=== PATIENT | male | born 1980 | race African-American/Black ===

== ENCOUNTER 2017-08-01 16:47 | Emergency (ER) | payer OTHER ==
[~2017-08-01] VITALS: Ht 172.7 cm; Wt 121.0 kg
[2017-08-01] MEDS ORDERED: ACETAMINOPHEN 500MG TABLET PO ONE (22:45)
[2017-08-01] MEDS ORDERED: IBUPROFEN 400MG TABLET PO ONE (22:45)
[2017-08-01 23:20] VITALS: BP 137/85
== END 2017-08-02 02:00 | disposition home or self-care (01) ==
LOC: ER 16:47
DX: S86.811A Strain of other muscle(s) and tendon(s) at lower leg level, right leg, initial encounter (principal); F17.200 Nicotine dependence, unspecified, uncomplicated; X58.XXXA Exposure to other specified factors, initial encounter; Y93.89 Activity, other specified; Y92.89 Other specified places as the place of occurrence of the external cause; Y99.8 Other external cause status
CPT/HCPCS: 93970; 99284

== ENCOUNTER 2017-11-18 14:19 | Emergency (ER) | payer OTHER ==
[~2017-11-18] VITALS: Ht 185.4 cm; Wt 120.0 kg
[2017-11-18] MEDS ORDERED: ALBUTEROL (0.083%) 2.5MG/3ML NEB HHN STA (14:51)
[2017-11-18 15:31] LABS: BASOPHILS % 0.5 % (0.0-2.0); EOSINOPHILS % 0.8 % (0.0-5.0); HEMATOCRIT. 44.4 % (42.0-52.0); HEMOGLOBIN. 14.9 g/dL (14.0-18.0); LYMPHOCYTES % 19.7 % (20.0-50.0); MEAN CORPUSCULAR HEMOGLOBIN 28.6 pg (28.0-32.0); MEAN CORPUSCULAR VOLUME 85.4 fL (80.0-94.0); MEAN PLATELET VOLUME 7.9 fl (7.4-10.4); MONOCYTES % 6.8 % (2.0-8.0); NEUTROPHILS % 72.2 % (40.0-76.0); PLATELET 190 x1000/uL (130-400); RED CELL DISTRIBUTION WIDTH 15.4 % (11.6-14.6)
[2017-11-18 15:34] LABS: CHLORIDE 97 mEq/L (98-107)
[2017-11-18 17:45] VITALS: BP 156/79
== END 2017-11-18 17:50 | disposition home or self-care (01) ==
LOC: ER 14:19
DX: R05 Cough (principal); R07.89 Other chest pain; R50.9 Fever, unspecified; Z98.890 Other specified postprocedural states
CPT/HCPCS: 36415; 71045; 80053; 83880; 84484; 85025; 93005; 94640; 99285; J7611

== ENCOUNTER 2018-03-07 08:51 | Emergency (ER) | payer OTHER ==
[~2018-03-07] VITALS: Ht 182.9 cm; Wt 113.0 kg
[2018-03-07 12:20] LABS: BASOPHILS % 0.8 % (0.0-2.0); EOSINOPHILS % 3.9 % (0.0-5.0); HEMATOCRIT. 46.3 % (42.0-52.0); HEMOGLOBIN. 15.4 g/dL (14.0-18.0); LYMPHOCYTES % 29.7 % (20.0-50.0); MEAN CORPUSCULAR HEMOGLOBIN 28.6 pg (28.0-32.0); MEAN CORPUSCULAR VOLUME 85.8 fL (80.0-94.0); MEAN PLATELET VOLUME 7.7 fl (7.4-10.4); NEUTROPHILS % 59.6 % (40.0-76.0); PLATELET 214 x1000/uL (130-400); RED CELL DISTRIBUTION WIDTH 14.7 % (11.6-14.6)
[2018-03-07 12:24] LABS: CHLORIDE 104 mEq/L (98-107)
[2018-03-07 12:26] LABS: D-DIMER 0.61 mg/L FEU (<0.50); PROTHROMBIN TIME 10.1 sec (9.1-11.1)
[2018-03-07 13:27] VITALS: BP 139/91
== END 2018-03-07 15:37 | disposition home or self-care (01) ==
LOC: ER 08:51
DX: S86.811A Strain of other muscle(s) and tendon(s) at lower leg level, right leg, initial encounter (principal); F17.200 Nicotine dependence, unspecified, uncomplicated; I10 Essential (primary) hypertension; J45.909 Unspecified asthma, uncomplicated; X58.XXXA Exposure to other specified factors, initial encounter; Y93.89 Activity, other specified; Y92.89 Other specified places as the place of occurrence of the external cause; Y99.8 Other external cause status; Z98.890 Other specified postprocedural states
CPT/HCPCS: 36415; 85379; 93971; 99284

== ENCOUNTER 2018-07-04 07:33 | Emergency (ER) | payer MEDICAID, OTHER ==
[~2018-07-04] VITALS: Ht 185.4 cm; Wt 116.0 kg
[2018-07-04] MEDS: HYDROCODONE/ACETAMINOPHEN 5/325MG TABLET PO STA (09:00)
[2018-07-04 10:55] VITALS: BP 138/78
[2018-07-04] MEDS: AMOXICILLIN/POTASSIUM CLAVULANATE 875/125MG TAB PO ONE (12:08)
[2018-07-04] MEDS: BACITRACIN ZINC OINT UDPKT TOP ONE (12:09)
== END 2018-07-04 12:30 | disposition home or self-care (01) ==
LOC: ER 07:33
DX: S02.2XXA Fracture of nasal bones, initial encounter for closed fracture (principal); S00.83XA Contusion of other part of head, initial encounter; M25.511 Pain in right shoulder; J45.909 Unspecified asthma, uncomplicated; I10 Essential (primary) hypertension; Y08.89XA Assault by other specified means, initial encounter; Y93.9 Activity, unspecified; Y92.89 Other specified places as the place of occurrence of the external cause; Y99.8 Other external cause status
CPT/HCPCS: 70486; 73030; 99284

== ENCOUNTER 2018-08-13 11:07 | Emergency (ER) | payer MEDICAID ==
[~2018-08-13] VITALS: Ht 185.4 cm; Wt 114.0 kg
[2018-08-13 11:18] VITALS: BP 160/107
[2018-08-13] MEDS ORDERED: KETOROLAC 60MG/2ML VIAL IM ONE (12:15)
== END 2018-08-13 12:25 | disposition home or self-care (01) ==
LOC: ER 12:25
DX: M72.2 Plantar fascial fibromatosis (principal); F17.200 Nicotine dependence, unspecified, uncomplicated; J45.909 Unspecified asthma, uncomplicated; I10 Essential (primary) hypertension; Z98.890 Other specified postprocedural states
CPT/HCPCS: 96372; 99283; J1885

== ENCOUNTER 2019-04-16 14:29 | Emergency (ER) | payer MEDICAID ==
[~2019-04-16] VITALS: Ht 182.9 cm; Wt 95.0 kg
[2019-04-16] MEDS ORDERED: NITROGLYCERIN 0.4MG TABLET SL SL PRN (15:30)
[2019-04-16] MEDS ORDERED: ASPIRIN 81MG TABLET PO ONE (15:30)
[2019-04-16 15:56] LABS: CHLORIDE 107 mEq/L (98-107)
[2019-04-16 16:00] LABS: BASOPHILS % 0.4 % (0.0-2.0); D-DIMER 0.34 mg/L FEU (<0.50); EOSINOPHILS % 3.8 % (0.0-5.0); HEMATOCRIT. 43.5 % (42.0-52.0); HEMOGLOBIN. 14.6 g/dL (14.0-18.0); INR 0.9; LYMPHOCYTES % 37.1 % (20.0-50.0); MEAN CORPUSCULAR HEMOGLOBIN 29.3 pg (28.0-32.0); MEAN PLATELET VOLUME 7.9 fl (7.4-10.4); MONOCYTES % 11.7 % (2.0-8.0); PARTIAL THROMBOPLASTIN TIME 28.2 sec (23.4-31.0); PLATELET 145 x1000/uL (130-400); PROTHROMBIN TIME 10.2 sec (9.6-11.0); RED BLOOD CELL COUNT 4.99 mill/uL (4.7-6.1); RED CELL DISTRIBUTION WIDTH 14.9 % (11.6-14.6)
[2019-04-16 19:47] VITALS: BP 121/76
== END 2019-04-16 19:51 | disposition home or self-care (01) ==
LOC: ER 14:29
DX: R07.89 Other chest pain (principal); I10 Essential (primary) hypertension; J45.909 Unspecified asthma, uncomplicated; Z91.011 Allergy to milk products
CPT/HCPCS: 36415; 71045; 80053; 83880; 84484; 85025; 85379; 85610; 85730; 93005; 99285; Z7610

== ENCOUNTER 2019-05-16 08:40 | Emergency (ER) | payer SELFPAY ==
[~2019-05-16] VITALS: Ht 185.4 cm; Wt 114.0 kg
[2019-05-16] MEDS ORDERED: ACETAMINOPHEN 325MG TABLET PO STA (09:39)
[2019-05-16] MEDS ORDERED: ALBUTEROL 6.7GM HFA INHALER ORI ONE (09:45)
[2019-05-16] MEDS ORDERED: ALBUTEROL (0.083%) 2.5MG/3ML NEB HHN ONE (10:00)
[2019-05-16 11:29] LABS: BASOPHILS % 1.2 % (0.0-2.0); EOSINOPHILS % 4.6 % (0.0-5.0); HEMATOCRIT. 46.1 % (42.0-52.0); HEMOGLOBIN. 15.4 g/dL (14.0-18.0); LYMPHOCYTES % 43.5 % (20.0-50.0); MEAN CORPUSCULAR HEMOGLOBIN 29.4 pg (28.0-32.0); MEAN CORPUSCULAR VOLUME 88.1 fL (80.0-94.0); MEAN PLATELET VOLUME 7.7 fl (7.4-10.4); MONOCYTES % 8.2 % (2.0-8.0); NEUTROPHILS % 42.5 % (40.0-76.0); PLATELET 189 x1000/uL (130-400); RED BLOOD CELL COUNT 5.23 mill/uL (4.7-6.1); RED CELL DISTRIBUTION WIDTH 15.9 % (11.6-14.6)
[2019-05-16 11:31] LABS: CHLORIDE 106 mEq/L (98-107)
[2019-05-16 15:16] VITALS: BP 146/76
== END 2019-05-16 15:18 | disposition home or self-care (01) ==
LOC: ER 08:40
DX: Z20.828 Contact with and (suspected) exposure to other viral communicable diseases (principal); J06.9 Acute upper respiratory infection, unspecified; R05 Cough; I10 Essential (primary) hypertension; F17.210 Nicotine dependence, cigarettes, uncomplicated; Z98.890 Other specified postprocedural states
CPT/HCPCS: 36415; 71045; 80053; 83880; 84484; 85025; 87635; 87804; 93005; 94640; 99285; Z7610

== ENCOUNTER 2019-12-17 10:29 | Emergency (ER) | payer MEDICAID, SELFPAY ==
[~2019-12-17] VITALS: Ht 185.4 cm; Wt 96.0 kg
[2019-12-17] MEDS ORDERED: KETOROLAC 30MG/ML VIAL IV ONE (11:15)
[2019-12-17] MEDS ORDERED: METOCLOPRAMIDE HCL 10MG/2ML VIAL IV ONE (11:15)
[2019-12-17 11:43] LABS: BASOPHILS % 0.9 % (0.0-2.0); EOSINOPHILS % 2.4 % (0.0-5.0); HEMATOCRIT. 43.1 % (42.0-52.0); HEMOGLOBIN. 14.4 g/dL (14.0-18.0); LYMPHOCYTES % 45.1 % (20.0-50.0); MEAN CORPUSCULAR HEMOGLOBIN 30.4 pg (28.0-32.0); MEAN CORPUSCULAR VOLUME 90.9 fL (80.0-94.0); MEAN PLATELET VOLUME 7.9 fl (7.4-10.4); MONOCYTES % 8.7 % (2.0-8.0); NEUTROPHILS % 42.9 % (40.0-76.0); PLATELET 136 x1000/uL (130-400); RED BLOOD CELL COUNT 4.75 mill/uL (4.7-6.1); RED CELL DISTRIBUTION WIDTH 13.7 % (11.6-14.6)
[2019-12-17] MEDS: FLUTICASONE PROPIONATE 50MCG/SPRAY BOTTLE BOTHNSTRLS STA ×2 (11:45→12:14)
[2019-12-17 11:51] LABS: CHLORIDE 103 mEq/L (98-107)
[2019-12-17 13:03] VITALS: BP 150/78
== END 2019-12-17 13:04 | disposition home or self-care (01) ==
LOC: ER 11:18
DX: R51.9 Headache, unspecified (principal); R19.5 Other fecal abnormalities
CPT/HCPCS: 36415; 71045; 80053; 83880; 84484; 85025; 86850; 86900; 86901; 93005; 96374; 96375; 99285; J1885; J2765

== ENCOUNTER 2020-02-28 16:01 | Emergency (ER) | payer SELFPAY ==
[~2020-02-28] VITALS: Ht 188 cm; Wt 113.0 kg
[2020-02-28] MEDS ORDERED: KETOROLAC 60MG/2ML VIAL IM ONE (16:30)
[2020-02-28 16:34] VITALS: BP 150/103
== END 2020-02-28 18:04 | disposition home or self-care (01) ==
LOC: ER 16:01
DX: S93.491A Sprain of other ligament of right ankle, initial encounter (principal); S93.691A Other sprain of right foot, initial encounter; F10.129 Alcohol abuse with intoxication, unspecified; Y90.9 Presence of alcohol in blood, level not specified; Z98.890 Other specified postprocedural states; W22.03XA Walked into furniture, initial encounter; Y93.89 Activity, other specified; Y92.018 Other place in single-family (private) house as the place of occurrence of the external cause
CPT/HCPCS: 73610; 73630; 96372; 99284; J1885